=== PATIENT | female | born 1950 | race Caucasian/White ===

== ENCOUNTER 2018-03-03 06:21 | Day surgery (SDC) | payer OTHER ==
[~2018-03-03 06:21] MED LIST: COZAAR25 MG
== END 2018-03-03 12:05 | disposition home or self-care (01) ==
LOC: AMB-ENDOS 06:21
DX: D12.3 Benign neoplasm of transverse colon (principal); K57.30 Diverticulosis of large intestine without perforation or abscess without bleeding

== ENCOUNTER 2023-05-03 05:45 | Day surgery (SDC) | payer OTHER ==
[~2023-05-03] VITALS: Ht 157.5 cm; Wt 67.1 kg
[~2023-05-03 05:45] MED LIST changes: +GLUMETZA500 MG PO; +[UNRECOGNIZED DRUG - OTHER] PO
== END 2023-05-03 13:25 | disposition home or self-care (01) ==
LOC: AMB-ENDOS 05:45 → CIR.AMB 13:30
PROVIDERS: ATTEND Surgery
DX: D12.2 Benign neoplasm of ascending colon (principal); K52.89 Other specified noninfective gastroenteritis and colitis; K57.30 Diverticulosis of large intestine without perforation or abscess without bleeding; K62.1 Rectal polyp; Z20.822 Contact with and (suspected) exposure to COVID-19